=== PATIENT | female | born 1965 | race Caucasian/White ===

== ENCOUNTER → 2017-06-14 | Outpatient (CLI) | payer OTHER ==
--- NOTE | 2017-06-15 18:08 | MR ---
EXAMINATION TYPE: MR brain wo/w con DATE OF EXAM: 06/14/2017 COMPARISON: 02/16/2016 HISTORY: MS TECHNIQUE: Multiplanar, multisequence images of the brain and brainstem is performed without and with utilizing 10 mL intravenous Gadavist gadolinium contrast. Demyelinating disease protocol with additional Sagit fred Flair sequence performed. FINDINGS: T2 Lesions Present : Yes Approximate Number of Lesions: At least 10 within the left supratentorial white matter, 2 within the cerebral peduncles, and 1 within the rito. At least 9 on the right within the supratentorial white ma tter. Locations Identified : Pericallosal periventricular, subcortical, cerebral peduncles. Size of Reference Lesion(s): 1. 1.0 cm x 0.6 cm x 0.5 cm on axial image 7 and sagittal image 20 within the right cerebellar pedun kevin. 2 0.8 cm x 0.9 cm x 0.8 cm on axial image 19 and sagittal image 15 within the left pericallosal reg ion Enhancing Lesion(s) Present: No Change from Prior: Stable Diffusion weighted images demonstrate no evidence of a recent infarct or other diffusion abnormality. Scattered areas of T2 shine through representing gliosis are seen adjacent to the left basal ganglia and within the rito. There is no worrisome extra-axial fluid collection. The ventricular system and cisternal spaces are normal in size and appearance. The brain volume is age appropriate. Midline structures demonstrate normal morphology. The craniocervical junction appears within normal limits. Post contrast images demonstrate no abnormal enhancement. The dural venous sinuses appear pa tent. Mild mucosal thickening is seen within the ethmoid sinuses. Remaining visualized paranasal sinu ses are well aerated. The globes are intact. IMPRESSION: Stable supratentorial and infratentorial bilateral white matter plaques in keeping with the patient's history of multiple sclerosis in comparison to the exam of 02/16/2016 that are nonenhancing and do n ot restricted diffusion therefore there is no suggestion of active demyelination.
== END | disposition home or self-care (01) ==
LOC: RADMRIMAIN 12:09
PROVIDERS: ATTEND Psychiatry & Neurology Neurology
DX: R90.82 White matter disease, unspecified (principal); G35 Multiple sclerosis
CPT/HCPCS: 70553; A9581

== ENCOUNTER → 2017-10-24 | Outpatient (CLI) | payer OTHER ==
--- NOTE | 2017-10-25 02:04 | MR ---
EXAMINATION TYPE: MR lumbar spine wo con DATE OF EXAM: 10/24/2017 COMPARISON: HISTORY: Multiple sclerosis, Lumbago w/sciatica TECHNIQUE: Multiplanar, multisequence images of the lumbar spine were acquired. There is a few millimeter anterior subluxation of L5 in relation to S1. There is degenerative disc sp brady narrowing from L2 to S1. There are small posterior disc herniations at L2-3 L3-4 L5-S1. There is developmentally adequate canal and no significant encroachment on the spinal canal. There is no leroy adrianna mass. There is no compression fracture. I see no focal bone destruction. L5-S1 disc herniation is slightly to the right side. Lumbar nerve roots appear normal. The neuroforamina are fairly well-maintained. IMPRESSION: Small posterior lumbar disc herniations. L5-S1 disc herniation is more to the right side. No spinal s tenosis. No fracture.
--- NOTE | 2017-10-25 02:11 | MR ---
EXAMINATION TYPE: MR cervical spine wo/w con DATE OF EXAM: 10/24/2017 COMPARISON: 04/04/2017 HISTORY: Multiple sclerosis, Lumbago w/sciatica TECHNIQUE: Multiplanar, multisequence images of the cervical spine were acquired utilizing 10 mL intravenous Jacob avist gadolinium contrast. Diffusion weighted imaging was performed. The cervical vertebra have normal alignment. Disc spaces are fairly normal. There is anterior disc he rniation C2-C7. There is developmentally adequate canal. There is a small posterior disc bulge at C5- 6. There is no encroachment on the spinal canal. Cervical spinal cord shows slight increased signal o n T2 at the C4 and C5 levels. The margins are indistinct. Exam is limited slightly by motion. This is seen at posterior cord at C3-4 and in the central cord region of C5-6. There is also slight increase d signal within the central cord at C7 level. I see no focal bone destruction. Posterior elements are intact. There is slight increased signal in the posterior medulla on the T2 images. The contrast nick ges show no pathologic enhancement. There is slight increased T2 signal in the posterior cord at T2-3 level. IMPRESSION: Multiple areas of increased cord signal are poorly marginated and consistent with demyelinating disea se. This appears not significantly different than the last MR scan. There is also probably involvemen t of the posterior medulla. I do not see areas of new involvement. Minor degenerative disc changes with anterior cervical disc herniations. No evidence of any significa nt posterior disc bulging. No spinal stenosis.
== END | disposition home or self-care (01) ==
LOC: RADMRIMAIN 17:55
PROVIDERS: ATTEND Psychiatry & Neurology Neurology
DX: M50.21 Other cervical disc displacement, high cervical region (principal); M50.30 Other cervical disc degeneration, unspecified cervical region; M51.26 Other intervertebral disc displacement, lumbar region; M51.27 Other intervertebral disc displacement, lumbosacral region; R90.89 Other abnormal findings on diagnostic imaging of central nervous system; G35 Multiple sclerosis
CPT/HCPCS: 72148; 72156; A9581

== ENCOUNTER → 2018-09-17 | Outpatient (CLI) | payer OTHER ==
--- NOTE | 2018-09-17 14:08 | MR ---
EXAMINATION TYPE: MR brain wo/w con DATE OF EXAM: 09/17/2018 COMPARISON: 06/14/2017 HISTORY: Multiple sclerosis CONTRAST: Performed utilizing 10 mL intravenous Gadavist gadolinium contrast. TECHNIQUE: Multiplanar, multisequence imaging of the brain is performed on a 3.0 Marge magnet. Demye linating disease protocol with additional Sagittal Flair sequence is performed. Study is performed wi thin 24 hours of arrival to the hospital. FINDINGS: T2 White Matter Lesions Present : Yes Approximate Number of Lesions: Multiple scattered Locations Identified : Yes detailed below Size of Largest Lesion(s): 1. 1.0 x 0.4 cm. Location: Right cerebellar peduncle Sequence 601, image 8. This is stable from comp arison 2. 0.6 x 0.6 x 1.1 cm. Location: Left cerebellar peduncle Sequence 601 Image 10 (axial) and Sequenc e 701 Image 17 (sagittal). Previous measurements 0.4 x 0.7 3. 0.4 x 1.3 x 0.6 cm. Location (periventricular white matter. Series 601, image 21, series 701, imag e 16. This has enlarged Enhancing Lesion(s) Present: No Change from Prior: Stable to enlarged white matter changes. Number white matter changes appear stable Diffusion-weighted imaging is performed. No abnormal hyperintensity is present to suggest an acute i ntracranial infarct or acute ischemic change. Ventricles and sulci are appropriate for the patient age. There are no abnormal extra-axial fluid collections. The ventricular system and cisternal spaces are normal in size and appearance. The brain volume is age appropriate. The craniocervical junction maximino ears within normal limits. The dural venous sinuses appear patent. No abnormal enhancement is present on post contrast images. . The visualized sinuses are clear. Visu alized orbits are unremarkable. IMPRESSION: 1. Multiple scattered white matter changes which can be compatible with multiple sclerosis in proper clinical setting. Number appears stable. Couple lesions may have enlarged over the interval.
== END | disposition home or self-care (01) ==
LOC: RADMRIMAIN 10:23
PROVIDERS: ATTEND Psychiatry & Neurology Neurology
DX: R90.82 White matter disease, unspecified (principal); G35 Multiple sclerosis
CPT/HCPCS: 70553; A9585

== ENCOUNTER → 2019-11-05 | Outpatient (CLI) | payer OTHER ==
--- NOTE | 2019-11-06 00:37 | MR ---
EXAMINATION TYPE: MR brain wo/w con DATE OF EXAM: 11/05/2019 COMPARISON: 09/17/2018 HISTORY: Unsteady gait, follow-up MS CONTRAST: Standard multiplanar, multisequence MRI departmental protocol utilizing 10 mL intravenous Gadavist ga dolinium contrast. There is a 9 x 5 mm focus of increased signal on the T2 images in the right cerebellar peduncle. Ther e is a rounded 6 mm focus of increased signal in the posterior aspect of the rito on the left side. T here are multiple foci of increased signal adjacent to the lateral ventricles on the T2 images that m easure up to 8 mm. There is no midline shift. There is no sign of intracranial hemorrhage. There is n o evidence of cortical infarct. The visualized lower there is no pathologic enhancement. Brainstem ap pears intact. There is no evidence of retro-orbital mass. There is mild cerebral atrophy. Sella turci ca appears normal. White matter lesions involve the corpus callosum which is typical for demyelinatin g disease. There are multiple high signal scattered foci at the berrios-white matter junction on the FLAIR images o f both cerebral hemispheres that measure up to 6 mm. Total number is approximately 10. IMPRESSION: Multiple white matter lesions as above without enhancement are consistent with demyelinating disease around the lateral ventricles and within the brainstem. This appears not significantly different than old exam. Multiple lesions also evident at the berrios-white matter junction of both cerebral hemispheres that are nonspecific and could relate to chronic small vessel ischemia. There is overall not a significant change compared to old exam.
== END | disposition home or self-care (01) ==
LOC: RADMRIMAIN 16:47
PROVIDERS: ATTEND Psychiatry & Neurology Neurology
DX: G35 Multiple sclerosis (principal)
CPT/HCPCS: 70553; A9585

== ENCOUNTER → 2021-05-18 | Outpatient (CLI) | payer MEDICARE ==
--- NOTE | 2021-05-19 01:58 | MR ---
EXAMINATION TYPE: MR brain/cspine wo/w DATE OF EXAM: 05/18/2021 COMPARISON: 11/05/2019 and 04/04/2017 HISTORY: MS, follow-up comparison to prior CONTRAST: Standard multiplanar, multisequence MRI departmental protocol images were obtained without contrast a nd with 10 mL intravenous Gadavist gadolinium contrast. Ventricles have fairly normal size. There is no mass effect or midline shift. There is no evidence of intracranial hemorrhage. Diffusion images show no evidence of an acute infarct. There is nodular foc i of increased signal in the periventricular white matter that measure up to 1 cm. These are close to the lateral ventricles and also involve the corpus callosum. This is consistent with demyelinating d isease. Total number of lesions is approximately 20. The brainstem shows 5 mm focus of increased signal in the posterior aspect of the left cerebellar ped uncle. There is 8 mm similar focus posterior right cerebellar peduncle. The sella turcica appears nor mal. There is no evidence of orbital mass. There is normal enhancement of the venous sinuses. There is no pathologic enhancement. Cervical vertebrae are fairly normal spacing and alignment. There is no compression fracture. There i s no evidence of any significant cervical disc herniation. Cervical spinal cord shows normal signal p attern. There is no edema. Contrast images show no pathologic enhancement in the cervical spine. Ther e is multilevel anterior mild disc herniations from C2 to the C6 level. Facet joints are intact. On t he FLAIR images of the cervical upper spinal cord there is subtle areas of increased signal in the po sterior cord at the C1 and C2 level. IMPRESSION: Multiple foci of white matter increased signal consistent with demyelinating disease. Les ions appear overall not significantly different than last exam. Cervical spinal cord shows some subtle increased signal in the posterior upper spinal cord that would be consistent with minimal demyelinating disease. Old exam T2 images of 04/04/2017 shows some subtle areas of increased signal in the cord at the C3 and C5 and C7 levels which is not demonstrated to an y degree on the exam today.
== END | disposition home or self-care (01) ==
LOC: RADMRIMAIN 17:44
PROVIDERS: ATTEND Psychiatry & Neurology Neurology
DX: R90.89 Other abnormal findings on diagnostic imaging of central nervous system (principal); G93.89 Other specified disorders of brain; G35 Multiple sclerosis
CPT/HCPCS: 70553; 72156; A9585

== ENCOUNTER → 2021-05-21 | Outpatient (CLI) | payer MEDICARE ==
--- NOTE | 2021-05-22 02:32 | MR ---
EXAMINATION TYPE: MR thoracic spine wo/w con DATE OF EXAM: 05/21/2021 COMPARISON: 04/02/2013 HISTORY: MS, follow-up comparison to prior. Whole body weakness. CONTRAST: Standard multiplanar, multisequence MRI departmental protocol images were obtained without contrast a nd with 10 mL intravenous Gadavist gadolinium contrast. The thoracic vertebrae have normal alignment. Disc spaces are fairly normal. There is no compression fracture. Thoracic spinal cord shows some increased T2 signal at T4 T5 T6 level that measures 3.3 cm in length. There is no evidence of a cord mass. There is no pathologic enhancement. There is no spinal stenosis. There is no evidence of focal bone destruction. There is no evidence of thoracic paraspinal mass. IMPRESSION: Nonenhancing mildly increased signal in the thoracic spinal cord at the T5 level consistent with demy elinating disease and appears new compared to the old exam.
== END | disposition home or self-care (01) ==
LOC: RADMRIMAIN 17:51
PROVIDERS: ATTEND Psychiatry & Neurology Neurology
DX: G35 Multiple sclerosis (principal)
CPT/HCPCS: 72157; A9585

== ENCOUNTER → 2024-01-30 | Outpatient (CLI) | payer MEDICARE ==
--- NOTE | 2024-01-30 14:48 | MR ---
EXAMINATION TYPE: MR thoracic spine wo/w con DATE OF EXAM: 01/30/2024 COMPARISON: 06/15/2022 HISTORY: 58-year-old female G35, MS, compare to prior MR. Technique: Multiplanar, multisequence images of the thoracic spine were obtained before and after adm inistration of 9 mL intravenous Gadavist gadolinium contrast. Demyelinating disease protocol was util ized with the addition of a sagittal PD sequence. FINDINGS: Diffuse thickening of the right adrenal gland without discrete nodularity is unchanged. Vertebral body heights are preserved and alignment is maintained. There is mild multilevel degenerati ve disc disease with mild disc bulging throughout. No large focal disc herniation or significant spin al canal stenosis. No significant neuroforaminal stenosis. Heterogeneous marrow signal suggesting red marrow hyperplasia. Normal course of the thoracic spinal cord with redemonstrated segment of increased cord signal at the T4 and T5 level. Currently spanning 2.0 cm versus 2.9 cm, previously. Similar mild volume loss of th e cord here. Increased signal within the central cord opposite the T2-T3 level is unchanged. High contrast window and on axial images suggest additional scattered bright white matter change thro ughout the thoracic cord, not well depicted on sagittal images and relatively unchanged from 3. No enhancing cord lesion. IMPRESSION: 1. Scattered increased signal throughout the thoracic spinal cord is relatively similar. Many of thes e areas are very subtle and vaguely depicted on the axial sequences. The largest area is opposite T4- T5 currently spanning 2.0 cm versus 2.9 cm, previously. Some volume loss of the cord here is similar and suggests myelomalacia. 2. The second more pronounced areas opposite T2-T3 and is unchanged. 3. No new lesions are clearly identified. No enhancing lesions. [facility], , 01/30/2024 2:46 PM
== END | disposition home or self-care (01) ==
LOC: RADMRIMAIN 07:49
PROVIDERS: ATTEND Psychiatry & Neurology Neurology
DX: G35 Multiple sclerosis (principal)
CPT/HCPCS: 72157

== ENCOUNTER → 2024-02-13 | Outpatient (CLI) | payer MEDICARE ==
--- NOTE | 2024-02-13 19:37 | MR ---
EXAMINATION TYPE: MR brain/cspine wo/w DATE OF EXAM: 02/13/2024 7:12 PM CLINICAL INDICATION: Female, 58 years old with history of MS; PHH, MS. compare to prior MR COMPARISON: 06/24/2022. TECHNIQUE: Multi planar, multi sequence imaging was performed through the brain including: T1, T2, Inversion rec overy, Diffusion weighted imaging, and gradient echo imaging. No gadolinium was given. Multi planar, multi sequence imaging was performed utilizing: T1-weighted, T2-weighted, and turbo inv ersion recovery imaging of the cervical spine. IV Contrast: 8.5 cc Gadobutrol FINDINGS: FINDINGS: BRAIN: Scattered white matter changes including the cerebral peduncles, posterior left rito, throughout the cerebrum. These are stable to most recent prior on 06/24/2022. No evidence for postcontrast enhancement or restricted diffusion to suggest active demyelination. Some of these white matter changes are orth ogonal to the ventricles. Diffusion weighted images demonstrate no evidence of a recent infarct or other diffusion abnormality. There is no extra-axial fluid collection. The ventricular system and cisternal spaces are normal i n size and appearance. The brain volume is age appropriate. Midline structures demonstrate normal mo rphology. The craniocervical junction appears within normal limits. The dural venous sinuses appear patent. Post contrast images demonstrate no abnormal enhancement The bone marrow signal is within normal limits. Paranasal sinuses and mastoid air cells: Mild scattered paranasal sinus disease. Visualized orbits: Orbital contents are intact. C-SPINE: Alignment: The cervical vertebral bodies have preserved heights. Alignment is within normal limits gi saige patient positioning. Bones: Bone signal is within normal limits. Multilevel degenerative disc disease is noted and most p ronounced at the C5-C7 vertebral levels. Cord: There is increased cord signal at the level of the inferior endplate of C3 in the dorsal column s on the right is similar to prior. No abnormal postcontrast enhancement Discs: Multilevel disc desiccation is present. C2-C3: No significant disc pathology. The spinal canal is patent. No neural foraminal stenosis. C3-C4: No significant disc pathology. The spinal canal is patent. No neural foraminal stenosis. C4-C5: No significant disc pathology. The spinal canal is patent. No neural foraminal stenosis. C5-C6: No significant disc pathology. The spinal canal is patent. Bilateral facet and uncovertebral joint arthropathy are present with mild left neural foraminal stenosis. The right neural foramen is p atent. C6-C7: No significant disc pathology. The spinal canal is patent. No neural foraminal stenosis. C7-T1: No significant disc pathology. The spinal canal is patent. No neural foraminal stenosis. Other: None. IMPRESSION: Brain: 1. No evidence fact active demyelination, Scattered white matter changes throughout the brain are si milar. 2. No evidence of intracranial mass, acute/subacute infarct, or abnormal enhancement. C-spine: 1. Stable white matter changes of the spinal cord at the level of the inferior endplate of C3 involv ing the left dorsal column. No abnormal postcontrast enhancement. 2. Mild multilevel disc degeneration with associated osteoarthritic changes. 3. No evidence for disc herniation or significant spinal canal stenosis. [facility], , 02/13/2024 7:35 PM
== END | disposition home or self-care (01) ==
LOC: RADMRIMAIN 17:48
PROVIDERS: ATTEND Psychiatry & Neurology Neurology
CPT/HCPCS: 70553; 72156